=== PATIENT | female | born 1955 | race Caucasian/White ===

== ENCOUNTER 2017-02-19 17:31 | Observation (INO) | payer OTHER ==
[2017-02-19 18:06] LABS: #Basophils 0.1 thou/uL (0.0-0.2); #Eosinphils 0.2 thou/uL (0.0-0.7); #Lymphocytes 3.8 thou/uL (1.20-3.40); #Monocytes 0.8 thou/uL (0.11-0.59); %Basophils 0.9 % (0.0-1.0); %Eosinophils 2.4 % (0.0-10.0); %Lymphocytes 38.8 % (21.0-51.0); %Monocytes 7.6 % (0.0-10.0); Hematocrit 36.6 % (36.0-47.0); Mean Platelet Volume 7.5 fL (7.4-10.4); Red Blood Cell (RBC) Count 3.89 mill/uL (4.20-5.40); White Blood Cell (WBC) Count 9.9 thou/uL (4.8-10.8)
[2017-02-19 18:30] LABS: ALT (SGPT) 18 U/L (8-55); AST (SGOT) 21 U/L (5-34); Alkaline Phosphatase 96 U/L (40-150); Anion Gap 15 mmol/L (10-20); BUN (Urea Nitrogen) 9 mg/dL (9.8-20.1); Bilirubin, Total 0.3 mg/dL (0.2-1.2); CK (CPK) 82 U/L (29-168); Calc. Creatinine Clearance 0 mL/min (70-130); Calcium 9.6 mg/dL (7.8-10.44); Carbon Dioxide 24 mmol/L (23-31); Chloride 103 mmol/L (98-107); Estimated GFR-MDRD 80; Globulin 3.6 g/dL (2.4-3.5); Lipase 30 U/L (8-78); Protein, Total 7.6 g/dL (6.0-8.3)
[2017-02-19] MEDS ORDERED: Lidocaine Viscous Sol 2% 15 ml UD Cup ONE ×2 (18:30→18:35)
[2017-02-19] MEDS ORDERED: Mag-Al 1200 mg/1200 mg/30 ML UDCUP ONE ×2 (18:30→18:35)
[2017-02-19 18:33] LABS: Troponin I Less than 0.010 ng/mL (< 0.028)
[2017-02-19] MEDS ORDERED: Lorazepam 2 MG/ML VIAL ONE (20:45)
--- NOTE | 2017-02-19 20:53 | RAD ---
PORTABLE AP CHEST X-RAY 02/19/17 HISTORY: Chest pain. Patient states left lower back pain radiating to left leg as well. Epigastric pain. Whee zing. COMPARISON: 09/14/16. The cardiac silhouette and pulmonary vasculature are within normal limits for the portable technique of this study. Linear densities are seen centered at each lung base, probably related to either ate lectasis or mild scarring. Lungs are otherwise clear. There has been no other interval change from t he prior exam. IMPRESSION: 1. No acute cardiopulmonary process. 2. Mild bibasilar atelectasis. POS: [facility]
[2017-02-19] MEDS ORDERED: Ondansetron HCl/PF 4 MG/2 ML Vial IVP PRN (23:46)
[2017-02-19] MEDS ORDERED: Ondansetron ODT 4 MG TAB SL PRN (23:46)
[2017-02-19] MEDS ORDERED: HYDROcodone/Acetaminophen 10/325 mg Tablet PO PRN (23:46)
[2017-02-20] MEDS ORDERED: Zolpidem Tartrate 5 MG TAB PO PRN (00:17)
[2017-02-20 00:20] LABS: Troponin I Less than 0.010 ng/mL (< 0.028)
[2017-02-20 00:54] VITALS: BMI 28.3
[2017-02-20 03:12] LABS: Troponin I Less than 0.010 ng/mL (< 0.028)
[2017-02-20 08:07] VITALS: BP 104/55; TEMP 97.6
[2017-02-20] MEDS ORDERED: FLU VACC QS2017-18 36 mo. & older 0.5 ML SYRINGE IM ONE (09:00)
[2017-02-20] MEDS ORDERED: Regadenoson 0.4 MG/5 ML SYRINGE ONE (11:56)
--- NOTE | 2017-02-20 12:35 | NM ---
MYOCARDIAL PERFUSION EVALUATION: INDICATION: Chest pain. RADIOPHARMACEUTICAL: 32 mCi of Technetium 99m sestamibi IV with stress and 9 mCi of Technetium 99m sestamibi IV with rest . FINDINGS: When comparing the rest and stress images, no reversible myocardial perfusion defect is evident. There was normal wall motion and thickening. The LVEF is estimated at 77%. IMPRESSION: Normal myocardial perfusion evaluation. 1. No scintigraphic evidence of reversible myocardial ischemia. 2. Estimated left ventricular ejection fraction of 77%. POS: [facility]
[2017-02-20] MEDS ORDERED: Ibuprofen 200 MG TAB PO PRN (13:23)
[2017-02-20] MEDS ORDERED: Ondansetron HCl/PF 4 MG/2 ML Vial IVP PRN (13:23)
[2017-02-20] MEDS ORDERED: Ondansetron ODT 4 MG TAB PO PRN (13:23)
--- NOTE | 2017-02-23 07:54 | HP ---
DATE OF ADMISSION: 02/19/2017 CHIEF COMPLAINT: Chest pain. HISTORY OF PRESENT ILLNESS: Ms. Scott is a 61-year-old female with past medical history of anxiety disorder, insomnia, hyperlipidemia who came because of chest tightness and pressure in th e chest, also complains of back pain which radiates to the right leg. The patient states she feels like something in the retrosternal area holding her chest, like a knot in the middle of her chest an d this started about 3 days ago, it comes and goes. She did not have any diaphoresis. No nausea or vomiting. No dizziness. lower back pain also she has for few days, which radiates down to t he leg with no history of injury. No numbness in the leg or no weakness in the leg. The patient do es have a history of chronic pain, back pain for a long time on and off. The patient came to the em ergency room where she was evaluated and found to have normal cardiac enzymes and EKG. She was admi tted to rule out myocardial infarction. PAST MEDICAL HISTORY: 1. Brain meningioma. 2. Hyperlipidemia. 3. Insomnia. 4. History of bronchial asthma. PAST SURGICAL HISTORY: 1. Status post hysterectomy. 2. Status post tubal ligation. FAMILY HISTORY: Nothing of interest. SOCIAL HISTORY: Patient lives with family. No history of smoking. No history of alcohol intake. REVIEW OF SYSTEMS: Cardiovascular: Has chest pain. No shortness of breath. Respiratory: No feve r or cough. Gastrointestinal: Has some nausea, no vomiting, no abdominal pain. Genitourinary: No dysuria or hematuria. Central Nervous System: No headache, no dizziness. CURRENT MEDICATIONS: She takes albuterol inhaler q.i.d. p.r.n., Ambien 5 mg at bedtime p.r.n., estr adiol 0.5 mg daily, Zofran p.r.n. ALLERGIES: No known drug allergies. PHYSICAL EXAMINATION: GENERAL: The patient is alert, awake, oriented x3. VITAL SIGNS: Temperature 98, pulse 87, respirations 20, blood pressure 140/90. HEENT: Head is normocephalic, atraumatic. Pupils are equal and reactive to light. Nasopharynx is pink, moist. NECK: Supple. No JVD. LUNGS: Bilateral air entry present, no rales, no rhonchi. CARDIAC: S1, S2 regular. ABDOMEN: Soft, no distention, no tenderness. Normal bowel sounds present. RECTAL: Deferred. CENTRAL NERVOUS SYSTEM: No focal deficit. LABORATORY DATA AND X-RAY FINDINGS: CBC shows WBC 9.9, hemoglobin 12.7, hematocrit 36, platelets 24 3. Metabolic panel shows sodium 138, potassium 4.2, chloride 103, CO2 25, urea nitrogen 9, creatini ne 0.7, glucose 88, CK-MB 1.6, troponin I less than 0.010. Chest x-ray is negative. EKG shows norm al sinus rhythm, no acute ST-T wave changes seen. ASSESSMENT: 1. Chest pain, rule out myocardial infarction. 2. Anxiety disorder. 3. Bipolar disorder. 4. History of meningioma of the brain. 5. Hyperlipidemia. 6. Back pain. PLAN: 1. Vital signs q.4 hours. 2. Activity: As tolerated. 3. Allergies: No known drug allergies. 4. Diet: Cardiac. 5. CK-MB and troponin I q.8 hours x2. 6. We will obtain a stress test tomorrow. 7. Continue her home medication. 8. Aspirin 81 mg daily.
--- NOTE | 2017-02-27 00:19 | DIS ---
DATE OF ADMISSION: 02/19/2017 DATE OF DISCHARGE: 02/20/2017 ADMITTING DIAGNOSES: 1. Chest pain, rule out myocardial infarction. 2. Anxiety disorder. 3. Bipolar disorder. 4. History of meningioma in the brain. 5. Hyperlipidemia. 6. Chronic back pain. FINAL DIAGNOSES: 1. Chest pain. No evidence of acute myocardial infarction. 2. Negative Cardiolite stress test. 3. Anxiety disorder. 4. Bipolar disorder. 5. Hyperlipidemia. 6. Back pain. BRIEF SUMMARY OF HOSPITAL COURSE: Ms. Scott is a 61-year-old female admitted because of chest pain. She has chest tightness and shortness of breath. The patient was admitted to rule out myocardial infarction in view of risk factors. Serial cardiac enzymes were done and they were withi n normal limits. A Cardiolite stress test was done, it showed negative for ischemia and ejection fr action of 77%. The patient's chest pain also resolved. In view of improvement, the patient was dis charged and at the time of discharge she was stable. Her vital signs were stable. Lungs clear. He art sounds regular. Abdomen is soft, nontender. Bowel sounds present. DISCHARGE MEDICATIONS: Include: 1. Paxil 20 mg daily. 2. Zofran p.r.n. 3. Ambien p.r.n. FOLLOWUP: The patient will come for followup in 2 weeks.
== END 2017-02-20 17:56 | disposition home or self-care (01) ==
LOC: ERS 17:31 → 2SW 22:20
PROVIDERS: ADMIT Internal Medicine; ATTEND Internal Medicine
DX: R07.89 Other chest pain (principal); F31.9 Bipolar disorder, unspecified; G47.00 Insomnia, unspecified; E78.5 Hyperlipidemia, unspecified; J45.909 Unspecified asthma, uncomplicated; Z79.899 Other long term (current) drug therapy; Z90.710 Acquired absence of both cervix and uterus; Z98.51 Tubal ligation status; Z87.891 Personal history of nicotine dependence; Z86.011 Personal history of benign neoplasm of the brain
CPT/HCPCS: 36415; 71010; 78452; 80053; 82553; 83690; 83880; 84484; 85025; 90471; 90682; 90732; 93005; 93017; 96374; 96375; 96376; A4216; A9500; G0008; G0009; G0378; J2060; J2270; J2405; J2785; Q0162; Q2036

== ENCOUNTER 2019-12-16 18:21 | Emergency (ER) | payer MEDICARE, MEDICAID ==
[2019-12-16 19:58] LABS: #Basophils 0.1 thou/uL (0.0-0.2); #Eosinphils 0.5 thou/uL (0.0-0.7); #Lymphocytes 4.9 thou/uL (1.20-3.40); #Monocytes 0.8 thou/uL (0.11-0.59); #Neutrophils 4.6 thou/uL (1.40-6.50); %Basophils 0.7 % (0.0-1.0); %Eosinophils 4.2 % (0.0-10.0); %Lymphocytes 45.3 % (21.0-51.0); %Monocytes 7.2 % (0.0-10.0); %Neutrophils 42.6 % (42.0-75.0); Hemoglobin 13.2 g/dL (12.0-16.0); Mean Corpuscular HGB CONC 33.8 g/dL (32.0-36.0); Mean Corpuscular Hemoglobin 31.6 pg (27.0-31.0); Mean Corpuscular Volume 93.7 fL (78.0-98.0); Mean Platelet Volume 8.1 fL (7.4-10.4); Platelet Count 271 thou/uL (130-400); RBC Distribution Width 12.2 % (11.5-14.5); Red Blood Cell (RBC) Count 4.18 mill/uL (4.20-5.40); White Blood Cell (WBC) Count 10.9 thou/uL (4.8-10.8)
[2019-12-16 20:17] LABS: ALT (SGPT) 26 U/L (8-55); AST (SGOT) 21 U/L (5-34); Albumin 4.6 g/dL (3.4-4.8); Alkaline Phosphatase 93 U/L (40-110); Anion Gap 15 mmol/L (10-20); BUN (Urea Nitrogen) 16 mg/dL (9.8-20.1); Bilirubin, Total 0.5 mg/dL (0.2-1.2); Calc. Creatinine Clearance 0 mL/min (70-130); Calcium 9.8 mg/dL (7.8-10.44); Carbon Dioxide 23 mmol/L (23-31); Chloride 102 mmol/L (98-107); Estimated GFR-MDRD 60; Globulin 3.7 g/dL (2.4-3.5); Glucose 99 mg/dL (80-115); Potassium 4.3 mmol/L (3.5-5.1); Protein, Total 8.3 g/dL (6.0-8.3); Sodium 136 mmol/L (136-145)
--- NOTE | 2019-12-16 20:59 | CT ---
CT ABDOMEN AND PELVIS WITHOUT CONTRAST: 12/16/19 HISTORY: Right sided flank pain. FINDINGS: The absence of oral and IV contrast reduces the sensitivity of the exam particularly for evaluation o f solid organs and bowel. The lung bases are clear. No free air or free fluid is seen in the abdomen or pelvis. No calcified ga llstones are seen. There is a 3.5 cm right adrenal mass with attenuation values consistent with a sindhu ign adenoma. No calculi is seen in the kidneys, ureters or the urinary bladder. No hydroureteronephrosis is seen o n either side. The small bowel loops are not abnormally dilated. A normal appearing appendix is present. There is no evidence of aneurysmal dilatation of the abdominal aorta. There are degenerative changes in the spin e. The patient is post hysterectomy. IMPRESSION: 1. No CT evidence of urinary tract calculi or obstruction. 2. A 3.5 cm right adrenal adenoma. 3. No evidence of appendicitis. POS: OFF
== END 2019-12-16 21:06 | disposition home or self-care (01) ==
LOC: ERS 18:21
DX: D30.01 Benign neoplasm of right kidney (principal); D35.01 Benign neoplasm of right adrenal gland; R14.0 Abdominal distension (gaseous); F31.9 Bipolar disorder, unspecified; F41.9 Anxiety disorder, unspecified; F17.220 Nicotine dependence, chewing tobacco, uncomplicated
CPT/HCPCS: 36415; 74176; 80053; 85025